=== PATIENT | female | born 1930 | race Caucasian/White ===

== ENCOUNTER → 2016-09-12 | Outpatient (CLI) | payer MEDICARE, BC ==
[2016-09-12 14:26] LABS: ANION GAP 9 (5-19); BLOOD UREA NITROGEN 16 mg/dL (7-20); CALCIUM 9.2 mg/dL (8.4-10.2); CARBON DIOXIDE 28 mmol/L (22-30); CHLORIDE 101 mmol/L (98-107); CREATININE RESULT 0.79 mg/dL (0.52-1.25); GLUCOSE 96 mg/dL (75-110); SODIUM 137.7 mmol/L (137-145)
== END ==
LOC: OD 12:44
PROVIDERS: ATTEND Internal Medicine Cardiovascular Disease
DX: Z79.899 Other long term (current) drug therapy (principal)
CPT/HCPCS: 36415; 80048

== ENCOUNTER → 2016-10-10 | Outpatient (CLI) | payer MEDICARE, BC ==
[2016-10-10 13:17] LABS: ANION GAP 12 (5-19); BLOOD UREA NITROGEN 19 mg/dL (7-20); CALCIUM 9.6 mg/dL (8.4-10.2); CARBON DIOXIDE 25 mmol/L (22-30); CHLORIDE 101 mmol/L (98-107); CREATININE RESULT 0.83 mg/dL (0.52-1.25); GLUCOSE 101 mg/dL (75-110); POTASSIUM 4.8 mmol/L (3.6-5.0); SODIUM 137.5 mmol/L (137-145)
== END ==
LOC: OD 12:05
PROVIDERS: ATTEND Internal Medicine Cardiovascular Disease
DX: Z79.899 Other long term (current) drug therapy (principal)
CPT/HCPCS: 36415; 80048

== ENCOUNTER → 2017-10-23 | Outpatient (CLI) | payer MEDICARE, BC ==
[2017-10-23 10:05] LABS: ANION GAP 8 (5-19); BLOOD UREA NITROGEN 18 mg/dL (7-20); CALCIUM 9.6 mg/dL (8.4-10.2); CARBON DIOXIDE 26 mmol/L (22-30); CHLORIDE 107 mmol/L (98-107); CHOLESTEROL 227.59 mg/dL (0-200); GLUCOSE 110 mg/dL (75-110); POTASSIUM 4.9 mmol/L (3.6-5.0); SODIUM 140.6 mmol/L (137-145); TRIGLYCERIDES 103 mg/dL (<150)
[2017-10-23 10:23] LABS: DIRECT LDL 118 mg/dL (<100)
== END ==
LOC: OD 09:03
PROVIDERS: ATTEND Internal Medicine Cardiovascular Disease
DX: I10 Essential (primary) hypertension (principal); E78.00 Pure hypercholesterolemia, unspecified; Z79.899 Other long term (current) drug therapy
CPT/HCPCS: 36415; 80048; 80061; 84443

== ENCOUNTER 2018-04-19 22:34 | Emergency (ER) | payer MEDICARE, BC ==
--- NOTE | 2018-04-20 00:14 | ER Document Report ---
ED General - General Chief Complaint: Numbness Stated Complaint: NUMBNESS/TINGLING IN ARMS Time Seen by Provider: 04/19/18 22:42 Notes: Patient is an 87-year-old female with a past medical history of hypertension and chronic bilateral lower extremity edema who presents with paresthesias of her bilateral feet. The patient states that she was up walking around more than usual today doing multiple loads of laundry. She states that she began to feel an intense coolness and tingling in her feet. She states that she try to cover them with a warm blanket but this did not improve her symptoms. Nothing seems to worsen the symptoms. She denies a history of similar symptoms in the past. She denies any difficulty walking or weakness to the deep feet. She denies any back pain or symptoms in the her upper legs. No fever or constitutional symptoms. She has not seen her general doctor regarding today's concerns. Her son at the bedside notes that she is supposed to be wearing compression stockings regularly but does not do so. TRAVEL OUTSIDE OF THE [place] IN LAST 30 DAYS: No - Related Data Allergies/Adverse Reactions: Sulfa (Sulfonamide Antibiotics) Allergy (Verified 07/02/16 19:55) Past Medical History - General Information source: Patient, Relative - Social History Smoking Status: Never Smoker Chew tobacco use (# tins/day): No Frequency of alcohol use: None Drug Abuse: None Lives with: Family Family History: Reviewed & Not Pertinent Patient has suicidal ideation: No Patient has homicidal ideation: No - Past Medical History Cardiac Medical History: Reports: Hx Coronary Artery Disease, Hx Heart Attack - 2008 s/p angiogram, Hx Hypercholesterolemia, Hx Hypertension Pulmonary Medical History: Reports: Hx COPD Denies: Hx Tuberculosis Neurological Medical History: Reports: Hx Cerebrovascular Accident - TIA Renal/ Medical History: Denies: Hx Peritoneal Dialysis Past Surgical History: Reports: Hx Cholecystectomy, Hx Vascular Surgery - Angiograph, no stents. Denies: Hx Pacemaker - Immunizations Hx Diphtheria, Pertussis, Tetanus Vaccination: Yes Hx Pneumococcal Vaccination: 06/26/12 Review of Systems - Review of Systems Notes: Constitutional: Negative for fever. HENT: Negative for sore throat. Eyes: Negative for visual changes. Cardiovascular: Negative for chest pain. Respiratory: Negative for shortness of breath. Gastrointestinal: Negative for abdominal pain, vomiting or diarrhea. Genitourinary: Negative for dysuria. Musculoskeletal: Negative for back pain. Skin: Negative for rash. Neurological: Negative for headaches, positive for paresthesias of the bilateral feet 10 point ROS negative except as marked above and in HPI. Physical Exam - Vital signs Vitals: Temp Pulse Resp BP Pulse Ox 97.6 F 55 L 14 125/43 L 98 04/19/18 22:55 04/19/18 22:55 04/19/18 22:55 04/19/18 22:55 04/19/18 22:55 Interpretation: Normal Notes: PHYSICAL EXAMINATION: GENERAL: Well-appearing, well-nourished and in no acute distress. HEAD: Atraumatic, normocephalic. EYES: Pupils equal round and reactive to light, extraocular movements intact, sclera anicteric, conjunctiva are normal. ENT: nares patent, oropharynx clear without exudates. Moist mucous membranes. NECK: Normal range of motion, supple without lymphadenopathy LUNGS: Breath sounds clear to auscultation bilaterally and equal. No wheezes rales or rhonchi. HEART: Regular rate and rhythm without murmurs. 2+ DP pulses bilaterally. Capillary refill less than 1 second in all digits of the bilateral feet. ABDOMEN: Soft, nontender, normoactive bowel sounds. No guarding, no rebound. No masses appreciated. EXTREMITIES: Normal range of motion, 3+ pitting edema that is equal and symmetric to the bilateral lower extremities. NEUROLOGICAL: Face symmetric. Tongue protrudes midline. Extraocular motions intact. Pupils are 2 mm and equally reactive. Normal speech, normal gait. 5 out of 5 strength in both the distal and proximal upper and lower extremities bilaterally. Sensation is grossly intact throughout. Finger to nose testing normal. Pronator drift normal. PSYCH: Normal mood, normal affect. SKIN: Warm, Dry, normal turgor, no rashes or lesions noted. Course - Re-evaluation Re-evalutation: 04/20/18 03:02 Presentation of a very well-appearing 87-year-old female with complaints of paresthesias of the bilateral feet. Strong 2+ DP pulses bilaterally, capillary refill less than 1 second in all digits of the bilateral feet. Sensation is grossly intact bilaterally. 5 out of 5 strength in both dorsi and plantar flexion. The remainder of the neurologic exam is likewise unremarkable. Clinical history is not consistent with an acute spinous compression, peripheral neuropathy or acute peripheral arterial disease. Patient's symptoms appear to be most consistent with progressive bilateral lower extremity edema likely secondary to venous incompetence particular given that the patient has been up and ambulating more than normal. Have encouraged her wear compression stockings as directed. At this time will discharge with return precautions and follow-up recommendations. Verbal discharge instructions given a the bedside and opportunity for questions given. Medication warnings reviewed. Patient is in agreement with this plan and has verbalized understanding of return precautions and the need for primary care follow-up in the next 24-72 hours. - Vital Signs Vital signs: Temp Pulse Resp BP Pulse Ox 97.6 F 61 13 144/67 H 93 04/20/18 00:44 04/20/18 00:44 04/20/18 00:44 04/20/18 00:44 04/20/18 00:44 Discharge - Discharge Clinical Impression: Bilateral leg paresthesia, Bilateral lower extremity edema Condition: Good Disposition: HOME, SELF-CARE Additional Instructions: Please wear compression stockings regularly as a swelling in your legs is likely the cause of why your legs felt tingling and numbness. Return if you develop focal weakness, numbness, confusion, inability to walk, or any other symptoms that are worrisome to you. Referrals: MANE PEARSON MD [Primary Care Provider] - Follow up as needed
[2018-04-20 00:51] VITALS: BP 144/67
== END 2018-04-20 00:51 | disposition home or self-care (01) ==
LOC: ER 22:34
DX: R20.2 Paresthesia of skin (principal); R60.0 Localized edema; Z91.19 Patient's noncompliance with other medical treatment and regimen; I10 Essential (primary) hypertension; I25.10 Atherosclerotic heart disease of native coronary artery without angina pectoris; I25.2 Old myocardial infarction; Z88.2 Allergy status to sulfonamides
CPT/HCPCS: 99284

== ENCOUNTER 2018-07-19 22:32 | Emergency (ER) | payer MEDICARE, BC ==
--- NOTE | 2018-07-19 23:14 | ER Document Report ---
ED General - General Chief Complaint: General Weakness Stated Complaint: CHEST PRESSURE, ABNORMAL FEELING IN CHEST Time Seen by Provider: 07/19/18 22:53 Notes: Patient is an 87-year-old female with a history of recurring angina. She is followed by her blast furnace helper, . She lives with her family. She presents because she was doing dishes and felt some pressure in her chest. She states she did have some sweating. No difficulty breathing. Said it resolved spontaneously when the paramedics arrived. She did not take her nitro. She has had aspirin. No vomiting. No abdominal pain. No actual pain in her chest. She said it felt like a pressure. She has had this several times in the past. She had a negative heart cath in 2015. She had negative stress test a week and a half ago. She has history of hypertension. No history of diabetes. No other complaints at this time. She currently has no symptoms and feels well. TRAVEL OUTSIDE OF THE [place] IN LAST 30 DAYS: No - Related Data Allergies/Adverse Reactions: Sulfa (Sulfonamide Antibiotics) Allergy (Verified 07/02/16 19:55) Past Medical History - Social History Smoking Status: Never Smoker Frequency of alcohol use: None Drug Abuse: None Family History: Reviewed & Not Pertinent Patient has suicidal ideation: No Patient has homicidal ideation: No - Past Medical History Cardiac Medical History: Reports: Hx Coronary Artery Disease, Hx Heart Attack - 2008 s/p angiogram, Hx Hypercholesterolemia, Hx Hypertension Pulmonary Medical History: Reports: Hx COPD Denies: Hx Tuberculosis Neurological Medical History: Reports: Hx Cerebrovascular Accident - TIA Renal/ Medical History: Denies: Hx Peritoneal Dialysis Past Surgical History: Reports: Hx Cholecystectomy, Hx Vascular Surgery - Angiograph, no stents. Denies: Hx Pacemaker - Immunizations Hx Diphtheria, Pertussis, Tetanus Vaccination: Yes Hx Pneumococcal Vaccination: 06/26/12 Review of Systems - Review of Systems Notes: My Normal Review Basic REVIEW OF SYSTEMS: CONSTITUTIONAL : Denies fever, chills, or sweats. Denies recent illness. EENT: Denies eye, ear, throat, or mouth pain or symptoms. Denies nasal or sinus congestion. CARDIOVASCULAR: Chest pressure RESPIRATORY: Denies cough, cold, or chest congestion. Denies shortness of breath, difficulty breathing, or wheezing. GASTROINTESTINAL: Denies abdominal pain. Denies nausea, vomiting, or diarrhea. MUSCULOSKELETAL: Denies neck or back pain or joint pain or swelling. SKIN: Denies rash or skin lesions. NEUROLOGICAL: Denies altered mental status or loss of consciousness. Denies headache. Denies weakness or paralysis or loss of use of either side. Denies problems with gait or speech. Denies sensory or motor loss. ALL OTHER SYSTEMS REVIEWED AND NEGATIVE. Physical Exam - Vital signs Vitals: Temp Resp BP Pulse Ox 97.7 F 16 130/51 H 99 07/19/18 22:45 07/19/18 22:45 07/19/18 22:45 07/19/18 22:45 - Notes Notes: General Appearance: Well nourished, alert, cooperative, no acute distress, no obvious discomfort. Well-appearing. Vitals: reviewed, See vital signs table. Head: no swelling or tenderness to the head Eyes: PERRL, EOMI, Conjuctiva clear Mouth: No decreasd moisture Lungs: No wheezing, No rales, No rhonci, No accessory muscle use, good air exchange bilaterally. Heart: Normal rate, Regular rythm, No murmur, no rub Abdomen: Normal BS, soft, No rigidity, No abdominal tenderness, No guarding, no rebound, no abdominal masses, no organomegaly Extremities: strength 5/5 in all extremities, good pulses in all extremities, no swelling or tenderness in the extremities, no edema. Skin: warm, dry, appropriate color, no rash Neuro: speech clear, oriented x 3, normal affect, responds appropriately to questions. Course - Re-evaluation Re-evalutation: 07/20/18 00:43 Patient has remained chest pain-free. She has had no further episodes of pressure. Her repeat troponin is pending. 07/20/18 02:52 Patient has been completely asymptomatic the entire time she was here. Her troponin and delta troponin are negative. Her EKG is normal. At this time I do not feel patient requires admission as she has a history of chronic recurring angina and just had a negative stress test a week and half ago. I informed patient and her family that despite all this being negative she still needs have a low threshold to return to ER if she has recurrent chest pressure or she feels unwell in any way. She does have nitro at home. I encouraged her to take it if she has any chest pressure and to call the ambulance. She is to follow-up with her blast furnace helper, Dr. Cesar, on Sunday. Dictation of this chart was performed using voice recognition software; therefore, there may be some unintended grammatical errors. - Vital Signs Vital signs: Temp Pulse Resp BP Pulse Ox 97.7 F 16 130/51 H 99 07/19/18 22:45 07/19/18 22:45 07/19/18 22:45 07/19/18 22:45 - Laboratory Result Diagrams: 07/19/18 23:15 07/19/18 23:15 Laboratory results interpreted by me: 07/19/18 07/19/18 23:15 23:15 RDW 14.2 H BUN 28 H Est GFR ( Amer) 56 L Est GFR (Non-Af Amer) 46 L Glucose 121 H Direct Bilirubin 0.5 H - EKG Interpretation by Me Additional EKG results interpreted by me: 07/19/18 23:11 EKG is reviewed and interpreted by me. EKG shows sinus rhythm with a rate of [address] segment elevation or depression. No ischemic T wave inversions. MI intervals prolonged. QRS duration QTc intervals are within normal range. Old EKG for comparison is from July 02, 2016. Discharge - Discharge Clinical Impression: Chest pain Qualifiers: Chest pain type: unspecified Qualified Code(s): R07.9 - Chest pain, unspecified Condition: Good Disposition: HOME, SELF-CARE Additional Instructions: Your blood work and EKG looking at your heart currently shows no evidence of a heart attack. We stilll want you to return to the ER immediately if you have recurring chest pain, difficulty breathing, or feel unwell in any way. Please call Dr. Cesar's office on Sunday for a close follow up appointment. Referrals: BONY CESAR MD [Primary Care Provider] - 07/22/18
[2018-07-19 23:27] LABS: ABSOLUTE BASOPHILS # (AUTO) 0.1 10^3/uL (0.0-0.2); ABSOLUTE EOSINOPHILS # (AUTO) 0.1 10^3/uL (0.0-0.6); ABSOLUTE LYMPHOCYTES (AUTO) 1.4 10^3/uL (0.5-4.7); ABSOLUTE MONOCYTES (AUTO) 0.8 10^3/uL (0.1-1.4); ABSOLUTE NEUT (AUTO) 4.9 10^3/uL (1.7-8.2); BASOPHILS % (AUTO) 0.8 % (0-2); EOSINOPHILS % (AUTO) 1.7 % (0-6); HEMATOCRIT 38.8 % (36.0-47.0); HEMOGLOBIN 12.8 g/dL (12.0-15.5); LYMPHOCYTES % (AUTO) 19.2 % (13-45); MEAN CORPUSCULAR HEMOGLOBIN 28.4 pg (27.0-33.4); MEAN CORPUSCULAR VOLUME 86 fl (80-97); MONOCYTES % (AUTO) 11.3 % (3-13); PLATELET COUNT 162 10^3/uL (150-450); RED CELL DISTRIBUTION WIDTH 14.2 % (11.5-14.0); TOTAL CELLS COUNTED % (AUTO) 100 %; WHITE BLOOD COUNT 7.3 10^3/uL (4.0-10.5)
[2018-07-19 23:49] LABS: CALCIUM 9.3 mg/dL (8.4-10.2)
[2018-07-19 23:50] LABS: ALANINE AMINOTRANSFERASE 14 U/L (9-52); ALBUMIN 3.6 g/dL (3.5-5.0); ALKALINE PHOSPHATASE 76 U/L (38-126); ANION GAP 9 (5-19); ASPARTATE AMINO TRANSFERASE 20 U/L (14-36); BILIRUBIN,TOTAL 0.7 mg/dL (0.2-1.3); BLOOD UREA NITROGEN 28 mg/dL (7-20); CARBON DIOXIDE 25 mmol/L (22-30); CHLORIDE 104 mmol/L (98-107); GLUCOSE 121 mg/dL (75-110); POTASSIUM 4.3 mmol/L (3.6-5.0)
[2018-07-19 23:51] LABS: BILIRUBIN,DIRECT 0.5 mg/dL (0.0-0.4); TOTAL PROTEIN 6.7 g/dL (6.3-8.2)
--- NOTE | 2018-07-20 00:27 | RADIOLOGY REPORT (SQ) ---
EXAM DESCRIPTION: XR CHEST 1 VIEW COMPLETED DATE/TME: 07/19/2018 23:11 CLINICAL HISTORY: 87 years Female, chest pain COMPARISON:07/02/2016 NUMBER OF VIEWS/TECHNIQUE: 1/AP FINDINGS: Adequate lung volume, 5 cm partially calcified lesion of the left upper hemithorax without suspicious interval change since prior exam from July 02, 2016 may indicate pleural calcification or old granulomatous disease, small chronic atelectasis or scar in the medial right lung base, normal cardiac silhouette, atherosclerosis, and intact bony thorax. IMPRESSION: No acute cardiopulmonary findings. Stable.
[2018-07-20 03:03] VITALS: BP 126/58
--- NOTE | 2018-07-20 08:00 | EKG REPORT ---
SEVERITY:- ABNORMAL ECG - SINUS RHYTHM FIRST DEGREE AV BLOCK : Confirmed by: Colten Slaughter MD 20-Jul-2018 08:00:12
== END 2018-07-20 03:03 | disposition home or self-care (01) ==
LOC: ER 22:32
DX: R07.89 Other chest pain (principal); R61 Generalized hyperhidrosis; I10 Essential (primary) hypertension; I25.10 Atherosclerotic heart disease of native coronary artery without angina pectoris; I25.2 Old myocardial infarction; J44.9 Chronic obstructive pulmonary disease, unspecified; Z88.2 Allergy status to sulfonamides
CPT/HCPCS: 36415; 71045; 80053; 84484; 85025; 93005; 93010; 99285

== ENCOUNTER 2018-09-09 08:13 | Emergency (ER) | payer MEDICARE, BC ==
--- NOTE | 2018-09-09 09:46 | RADIOLOGY REPORT (SQ) ---
EXAM DESCRIPTION: ELBOW LEFT OVER 2 VIEWS COMPLETED DATE/TIME: 09/09/2018 9:36 am REASON FOR STUDY: fall COMPARISON: None. NUMBER OF VIEWS: Four views. TECHNIQUE: AP, lateral, and both oblique radiographic images acquired of the left elbow. LIMITATIONS: None. FINDINGS: MINERALIZATION: Osteopenia. BONES: No acute fracture or dislocation. No worrisome bone lesions. JOINT: No effusion. SOFT TISSUES: No soft tissue swelling. No foreign body. OTHER: No other significant finding. IMPRESSION: No fracture or dislocation of the left elbow. No elbow joint effusion to suggest radiog raphically occult fracture of the left radial head or neck. TECHNICAL DOCUMENTATION: JOB ID: [id number] [employer]- All Rights Reserved Reading location - IP/workstation name: [email or web address]
--- NOTE | 2018-09-09 09:51 | RADIOLOGY REPORT (SQ) ---
EXAM DESCRIPTION: RIBS LEFT W/PA CHEST COMPLETED DATE/TIME: 09/09/2018 9:36 am REASON FOR STUDY: fall COMPARISON: 10/23/2012 TECHNIQUE: Frontal view of the chest and additional views of the left ribs acquired. NUMBER OF VIEWS: Three view. LIMITATIONS: None. FINDINGS: FRONTAL CXR: No pneumothorax. No pleural effusion. There is an unchanged irregular calci fied mass or nodule of the left upper lobe. Bibasilar scarring or atelectasis. RIBS: No displaced rib fractures. No lytic or blastic bony lesions. OTHER: No other significant finding. IMPRESSION: 1. No displaced rib fracture. No pneumothorax or pleural effusion. 2. Unchanged, irregular calcified mass or nodule of the left upper lobe, stable since at least 2012 and likely sequelae of prior infection. COMMENT: SITE OF TRAUMA/COMPLAINT MARKED/STAMP COMPLETED: YES. TECHNICAL DOCUMENTATION: JOB ID: [id number] [employer]- All Rights Reserved Reading location - IP/workstation name: [email or web address]
--- NOTE | 2018-09-09 10:00 | RADIOLOGY REPORT (SQ) ---
EXAM DESCRIPTION: WRIST LEFT 3 VIEWS COMPLETED DATE/TIME: 09/09/2018 9:36 am REASON FOR STUDY: fall COMPARISON: None. NUMBER OF VIEWS: Three views. TECHNIQUE: AP, lateral, and oblique radiographic images acquired of the left wrist. LIMITATIONS: None. FINDINGS: MINERALIZATION: Osteopenia. BONES: No acute fracture or dislocation. No worrisome bone lesions. Normal alignment. SOFT TISSUES: No soft tissue swelling. No foreign body. OTHER: No other significant finding. IMPRESSION: Osteopenia without displaced fracture or dislocation of the left wrist. TECHNICAL DOCUMENTATION: JOB ID: [id number] [employer]- All Rights Reserved Reading location - IP/workstation name: [email or web address]
--- NOTE | 2018-09-09 10:01 | RADIOLOGY REPORT (SQ) ---
EXAM DESCRIPTION: FEMUR LEFT COMPLETED DATE/TIME: 09/09/2018 9:36 am REASON FOR STUDY: fall COMPARISON: None. NUMBER OF VIEWS: Two views. TECHNIQUE: Two radiographic images acquired of the left femur to include hip and knee in at least on e projection. LIMITATIONS: None. FINDINGS: MINERALIZATION: Osteopenia. BONES: No acute fracture. No worrisome bone lesions. SOFT TISSUES: No obvious swelling or foreign body. OTHER: No other significant finding. IMPRESSION: Osteopenia. No fracture or dislocation of the left femur. TECHNICAL DOCUMENTATION: JOB ID: [id number] [employer]- All Rights Reserved Reading location - IP/workstation name: [email or web address]
--- NOTE | 2018-09-09 10:53 | RADIOLOGY REPORT (SQ) ---
EXAM DESCRIPTION: CT HEAD WITHOUT COMPLETED DATE/TIME: 09/09/2018 10:40 am REASON FOR STUDY: fall COMPARISON: CT brain, 06/25/2012 TECHNIQUE: Axial images acquired through the brain without intravenous contrast. Images reviewed wi th bone, brain and subdural windows. Additional sagittal and coronal reconstructions were generated. Images stored on PACS. All CT scanners at this facility use dose modulation, iterative reconstruction, and/or weight based d osing when appropriate to reduce radiation dose to as low as reasonably achievable (ALARA). [facility]: Dose Right [facility]: CareDose [facility]: Dose Right [facility]: Teradose 4D [facility]: Smart [employer] RADIATION DOSE: CT Rad equipment meets quality standard of care and radiation dose reduction techniq ues were employed. CTDIvol: 53.2 mGy. DLP: 1097 mGy-cm. mGy. LIMITATIONS: None. FINDINGS: VENTRICLES: Normal size and contour. CEREBRUM: There is a small focal right parafalcine subdural hematoma of the mid to posterior falx ceferino suring approximately 9 mm in thickness. Normal figueroa/white matter differentiation. No areas of low den sity in the white matter. CEREBELLUM: No masses. No hemorrhage. No alteration of density. No evidence for acute infarction. EXTRAAXIAL SPACES: No fluid collections. No masses. ORBITS AND GLOBE: No intra- or extraconal masses. Normal contour of globe without masses. CALVARIUM: No fracture. PARANASAL SINUSES: No fluid or mucosal thickening. SOFT TISSUES: No mass or hematoma. OTHER: No other significant finding. IMPRESSION: There is a small focal right parafalcine subdural hematoma of the mid to posterior falx measuring approximately 9 mm in thickness. There is no significant mass effect. Recommend short int erval follow-up CT perhaps in 4-8 hours to ensure stability. EVIDENCE OF ACUTE STROKE: NO. COMMENT: Quality ID # [id number]: Final reports with documentation of one or more dose reduction techniques (e.g., Automated exposure control, adjustment of the mA and/or kV according to patient size, use of iterative reconstruction technique) TECHNICAL DOCUMENTATION: JOB ID: [id number] [employer]- All Rights Reserved Reading location - IP/workstation name: [email or web address]
[2018-09-09 11:47] LABS: ABSOLUTE EOSINOPHILS # (AUTO) 0.1 10^3/uL (0.0-0.6); ABSOLUTE LYMPHOCYTES (AUTO) 1.2 10^3/uL (0.5-4.7); ABSOLUTE NEUT (AUTO) 9.7 10^3/uL (1.7-8.2); BASOPHILS % (AUTO) 0.4 % (0-2); EOSINOPHILS % (AUTO) 0.5 % (0-6); HEMATOCRIT 40.6 % (36.0-47.0); HEMOGLOBIN 13.3 g/dL (12.0-15.5); LYMPHOCYTES % (AUTO) 9.8 % (13-45); MEAN CORPUSCULAR HEMOGLOBIN 28.6 pg (27.0-33.4); MEAN CORPUSCULAR HGB CONC 32.7 g/dL (32.0-36.0); MEAN CORPUSCULAR VOLUME 88 fl (80-97); MONOCYTES % (AUTO) 8.1 % (3-13); PLATELET COUNT 201 10^3/uL (150-450); RED BLOOD COUNT 4.64 10^6/uL (3.72-5.28); SEGMENTED NEUTROPHILS % (AUTO) 81.2 % (42-78); TOTAL CELLS COUNTED % (AUTO) 100 %; WHITE BLOOD COUNT 11.9 10^3/uL (4.0-10.5)
[2018-09-09 11:53] LABS: PROTHROMBIN TIME 12.6 SEC (11.4-15.4)
[2018-09-09 11:54] LABS: PARTIAL THROMBOPLASTIN TIME 32.3 SEC (23.5-35.8)
--- NOTE | 2018-09-09 12:12 | ER Document Report ---
ED General - General Chief Complaint: Fall Injury Stated Complaint: FALL,SIDE PAIN Time Seen by Provider: 09/09/18 08:34 TRAVEL OUTSIDE OF THE [place] IN LAST 30 DAYS: No - HPI Patient complains to provider of: Fall Notes: Patient coming in after a fall according family members patient was walking on the stairs fell down 2 stairs at the tripping over the dog landing on her face unknown there is any loss of consciousness. Patient upon my evaluation is resting comfortably GCS 15 ANO x4. Patient is significantly hard of hearing and has to read lips. Patient states most of her pain is in the left side of her chest left elbow left shoulder left thigh. Patient otherwise has no complaints of anterior chest wall pain abdominal pain denies any nausea vomiting fevers chills diarrhea denies any syncope. - Related Data Allergies/Adverse Reactions: Sulfa (Sulfonamide Antibiotics) Allergy (Verified 07/02/16 19:55) Past Medical History - Social History Smoking Status: Former Smoker Frequency of alcohol use: None Drug Abuse: None Family History: Reviewed & Not Pertinent Patient has suicidal ideation: No Patient has homicidal ideation: No - Past Medical History Cardiac Medical History: Reports: Hx Coronary Artery Disease, Hx Heart Attack - 2009 s/p angiogram, Hx Hypercholesterolemia, Hx Hypertension Pulmonary Medical History: Reports: Hx COPD Denies: Hx Tuberculosis Neurological Medical History: Reports: Hx Cerebrovascular Accident - TIA Renal/ Medical History: Denies: Hx Peritoneal Dialysis Past Surgical History: Reports: Hx Cholecystectomy, Hx Vascular Surgery - Angiograph, no stents. Denies: Hx Pacemaker - Immunizations Hx Diphtheria, Pertussis, Tetanus Vaccination: Yes Hx Pneumococcal Vaccination: 06/26/12 Review of Systems - Review of Systems Constitutional: Other - Fall left upper lower extremity pain EENT: No symptoms reported Cardiovascular: No symptoms reported Respiratory: No symptoms reported Gastrointestinal: No symptoms reported Genitourinary: No symptoms reported Female Genitourinary: No symptoms reported Musculoskeletal: No symptoms reported Skin: No symptoms reported Hematologic/Lymphatic: No symptoms reported Neurological/Psychological: No symptoms reported -: Yes All other systems reviewed and negative Physical Exam - Vital signs Vitals: Resp 16 09/09/18 11:20 Interpretation: Normal - General General appearance: Appears well, Alert - HEENT Head: Normocephalic, Atraumatic Eyes: Normal Pupils: PERRL - Respiratory Respiratory status: No respiratory distress Chest status: Tender - Chest wall tenderness to the left lateral side approximately rib #4 5 no bruising or contusion raising of the left shoulder reproduces the patient's left lateral chest wall pain Breath sounds: Normal Chest palpation: Normal - Cardiovascular Rhythm: Regular Heart sounds: Normal auscultation Murmur: No - Abdominal Inspection: Normal Distension: No distension Bowel sounds: Normal Tenderness: Nontender Organomegaly: No organomegaly - Back Back: Normal, Nontender - Extremities General upper extremity: Tender, Normal color, Normal ROM, Normal temperature. 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 No: Normal inspection - Patient with an abrasion to the left leg patient is forming a large hematoma to the middle of the femur otherwise sensation is intact there is no pain to palpation of the left knee left ankle or left hip, Joe's sign - Neurological Neuro grossly intact: Yes Cognition: Normal Orientation: AAOx4 Yolanda Coma Scale Eye Opening: Spontaneous Gail Coma Scale Verbal: Oriented Gail Coma Scale Motor: Obeys Commands Yolanda Coma Scale Total: 15 Speech: Normal Motor strength normal: LUE, RUE, LLE, RLE Sensory: Normal - Psychological Associated symptoms: Normal affect, Normal mood - Skin Skin Temperature: Warm Skin Moisture: Dry Skin Color: Normal Course - Re-evaluation Re-evalutation: 09/09/18 12:[address] of her head was delayed as the patient states that when ever she lays down flat she was getting short of breath patient states normally sleeps on a few pillows therefore I did contact our radiology team recommending elevation of the patient's head placing the patient on oxygen we were initially able to only obtain plain films which were all read as negative no signs of acute fracture or osseous injury. CT of the head does show a small subdural hematoma no midline shift. Patient remains stable pain O x4 with GCS of 15. Did discuss with family members the need for observation more likely transfer that we like neurosurgery neurology trauma team and other specialist required to observe the patient request to be transferred to [facility]. Discussed with trauma surgeon Dr. Comer who agrees and transfer of the patient is up with the patient as a trauma green. Patient remained stable IV was established patient laboratory studies will be performed while pending transfer. 09/09/18 15:56 Transport was at patient bedside patient stable for transport - Vital Signs Vital signs: Temp Pulse Resp BP Pulse Ox 97.6 F 15 143/67 H 95 09/09/18 14:01 09/09/18 14:01 09/09/18 14:00 09/09/18 14:01 - Laboratory Result Diagrams: 09/09/18 11:30 09/09/18 11:30 Laboratory results interpreted by me: 09/09/18 09/09/18 11:30 11:30 WBC 11.9 H Seg Neutrophils % 81.2 H Lymphocytes % 9.8 L Absolute Neutrophils 9.7 H Sodium 136.5 L Glucose 123 H Discharge - Discharge Clinical Impression: Subdural hematoma, Multiple contusions hematomas Fall at home Qualifiers: Encounter type: initial encounter Qualified Code(s): W19.XXXA - Unspecified fall, initial encounter Condition: Good Disposition: [facility] Referrals: BONY CESAR MD [Primary Care Provider] - Follow up as needed
[2018-09-09 12:16] LABS: ANION GAP 6 (5-19); BLOOD UREA NITROGEN 20 mg/dL (7-20); CALCIUM 9.2 mg/dL (8.4-10.2); CARBON DIOXIDE 26 mmol/L (22-30); CHLORIDE 105 mmol/L (98-107); GLUCOSE 123 mg/dL (75-110); POTASSIUM 4.7 mmol/L (3.6-5.0); SODIUM 136.5 mmol/L (137-145)
[2018-09-09 14:50] VITALS: BP 143/67
== END 2018-09-09 14:45 | disposition short-term general hospital (02) ==
LOC: ER 08:13
DX: S06.5X9A Traumatic subdural hemorrhage with loss of consciousness of unspecified duration, initial encounter (principal); S50.02XA Contusion of left elbow, initial encounter; S60.212A Contusion of left wrist, initial encounter; S70.12XA Contusion of left thigh, initial encounter; R07.89 Other chest pain; M25.522 Pain in left elbow; M25.512 Pain in left shoulder; M79.652 Pain in left thigh; W10.9XXA Fall (on) (from) unspecified stairs and steps, initial encounter; Y92.009 Unspecified place in unspecified non-institutional (private) residence as the place of occurrence of the external cause; I25.10 Atherosclerotic heart disease of native coronary artery without angina pectoris; I10 Essential (primary) hypertension; J44.9 Chronic obstructive pulmonary disease, unspecified; Z87.891 Personal history of nicotine dependence; Z88.2 Allergy status to sulfonamides
CPT/HCPCS: 36415; 70450; 80048; 85025; 85610; 85730; 99285